=== PATIENT | male | born 1995 | race Caucasian/White ===

== ENCOUNTER 2017-01-12 08:25 | Emergency (ER) | payer OTHER ==
[~2017-01-12] VITALS: Ht 157.5 cm; Wt 90.0 kg
[2017-01-12 08:30] VITALS: BP 141/90
[2017-01-12] MEDS ORDERED: IBUP-1022 PO (08:34)
[2017-01-12] MEDS ORDERED: NORCOTAB PO (09:10)
[2017-01-12] MEDS ORDERED: AUGM875T28 PO (09:10)
[2017-01-12] MEDS ORDERED: NORCO, ANEXSIA 5/325MG TABLET (HYDROcodone/ACETAMINOPHEN) PO ONE (09:15)
[2017-01-12] MEDS ORDERED: AUGMENTIN 875 MG TAB PO ONE (09:15)
== END 2017-01-12 09:15 | disposition home or self-care (01) ==
LOC: M ED 08:25
DX: K02.9 Dental caries, unspecified (principal); K04.7 Periapical abscess without sinus

== ENCOUNTER 2017-03-14 22:09 | Emergency (ER) | payer OTHER ==
[~2017-03-14] VITALS: Ht 157.5 cm; Wt 81.8 kg
[~2017-03-14 22:09] MED LIST: AUGM875T28 PO; IBUP-1022 PO; NORCOTAB PO
[2017-03-14 22:13] VITALS: BP 146/95
[2017-03-14] MEDS ORDERED: AMOX500C PO (23:32)
[2017-03-14] MEDS ORDERED: IBUP80TA PO (23:32)
[2017-03-14] MEDS ORDERED: NORCO 5/325MG TABLET (BULK FOR ED) PO ONE (23:45)
[2017-03-14] MEDS ORDERED: AMOXICILLIN 500 MG CAP PO ONE (23:45)
[2017-03-15] MEDS ORDERED: BENA25CA4 PO (13:53)
[2017-03-15] MEDS ORDERED: HYDR-3713 PO (13:53)
[2017-03-15] MEDS ORDERED: CLIN150C14 PO (15:18)
== END 2017-03-14 23:52 | disposition home or self-care (01) ==
LOC: M ED 22:09
DX: K02.9 Dental caries, unspecified (principal); K08.89 Other specified disorders of teeth and supporting structures; J45.909 Unspecified asthma, uncomplicated

== ENCOUNTER 2017-03-15 13:45 | Emergency (ER) | payer OTHER ==
[~2017-03-15] VITALS: Ht 157.5 cm; Wt 81.8 kg
[~2017-03-15 13:45] MED LIST changes: +AMOX500C PO; +IBUP80TA PO
[2017-03-15 13:46] VITALS: BP 142/84
[2017-03-15] MEDS ORDERED: HYDR-3713 PO (13:53)
[2017-03-15] MEDS ORDERED: BENA25CA4 PO (13:53)
[2017-03-15] MEDS ORDERED: CLIN150C14 PO (15:18)
== END 2017-03-15 15:25 | disposition home or self-care (01) ==
LOC: M ED 13:45
DX: K02.9 Dental caries, unspecified (principal); K08.89 Other specified disorders of teeth and supporting structures; J45.909 Unspecified asthma, uncomplicated; Z79.2 Long term (current) use of antibiotics; Z79.899 Other long term (current) drug therapy

== ENCOUNTER 2018-12-08 22:53 | Emergency (ER) | payer OTHER, SELFPAY ==
[~2018-12-08] VITALS: Ht 160 cm; Wt 81.8 kg
[~2018-12-08 22:53] MED LIST changes: +BENA25CA4 PO; +CLIN150C14 PO; +HYDR-3713 PO; +HYDR-3715 PO; -NORCOTAB PO
[2018-12-08] MEDS ORDERED: NS 1,000 ML IV ONE (23:30)
[2018-12-08] MEDS: IPRATROPIUM 0.5MG/ALBUTEROL 2.5MG INH SOL UD 3ML (DUONEB)(J7620) NEB PRN (23:57)
[2018-12-09 00:13] LABS: BASO # 0.1 10^3/uL (0.0-0.2); BASO % 0.6 % (0.0-1.0); EOS # 0.4 10^3/uL (0.0-0.50); EOS % 4.1 % (0.0-3.0); HEMATOCRIT 43.5 % (42.0-52.0); HEMOGLOBIN 14.7 g/dl (13.5-17.5); LYMPH # 1.3 10^3/uL (1.5-6.5); MEAN CORPUSCULAR HEMOGLOBIN 29.2 pg (27.0-33.0); MEAN CORPUSCULAR HGB CONC 33.8 g/dl (32.0-36.5); MEAN CORPUSCULAR VOLUME 86.3 fl (80.0-96.0); MONO # 0.9 10^3/uL (0.0-0.8); MONO % 9.8 % (0.0-5.0); NEUTROPHILS # 6.8 10^3/uL (1.8-7.7); NEUTROPHILS % 70.8 % (36.0-66.0); PLATELET COUNT, AUTOMATED 475 10^3/uL (150-450); RED BLOOD COUNT 5.04 10^6/uL (4.30-6.10); WHITE BLOOD COUNT 9.6 10^3/uL (4.0-10.0)
[2018-12-09 00:19] LABS: BLOOD UREA NITROGEN 8 MG/DL (7-18); CALCIUM LEVEL 9.1 MG/DL (8.5-10.1); CARBON DIOXIDE LEVEL 28 MEQ/L (21-32); CHLORIDE LEVEL 101 MEQ/L (98-107); CREATININE FOR GFR 0.81 MG/DL (0.70-1.30); GLOMERULAR FILTRATION RATE > 60.0 (>60); GLUCOSE, FASTING 99 MG/DL (70-100); SODIUM LEVEL 135 MEQ/L (136-145)
[2018-12-09] MEDS: IPRATROPIUM 0.5MG/ALBUTEROL 2.5MG INH SOL UD 3ML (DUONEB)(J7620) NEB PRN ×2 (00:33→00:52)
[2018-12-09] MEDS ORDERED: methylPREDNISolone INJ 125 MG/2 ML VIAL (J2930) IV ONE (01:15)
[2018-12-09] MEDS ORDERED: AZITHROMYCIN 250 MG TAB PO ONE (01:15)
[2018-12-09] MEDS ORDERED: PROAAER10 INH (01:34)
[2018-12-09] MEDS ORDERED: PRED20TA PO (01:34)
[2018-12-09] MEDS ORDERED: AZIT-12 PO (01:34)
[2018-12-09] MEDS ORDERED: ALBUTEROL 90 MCG/ACT 8GM HFA INHALER INH ONE (01:45)
[2018-12-09 01:53] VITALS: BP 147/68
--- NOTE | 2018-12-09 09:59 | REP ---
REASON: Cough and dyspnea. COMPARISON: 04/23/2014. There is a patchy opacity in the left upper lobe representing a change from the prior exam. The heart is not enlarged and the pleural angles are sharp. The osseous structures are stable and intact. IMPRESSION: Left upper lobe pneumonia. Electronically Signed by Fadi Barrett DO 12/09/2018 09:09 A
== END 2018-12-09 01:56 | disposition home or self-care (01) ==
LOC: M ED 22:53
DX: J45.901 Unspecified asthma with (acute) exacerbation (principal); J84.9 Interstitial pulmonary disease, unspecified
CPT/HCPCS: 71046; 80048; 85025; 94760; 96361; 96374; 99284; J2930

== ENCOUNTER 2019-02-27 17:32 | Inpatient (IN) | payer SELFPAY ==
[~2019-02-27] VITALS: Ht 177.8 cm; Wt 80.3 kg
[~2019-02-27 17:32] MED LIST changes: +AZIT-12 PO; +PRED20TA PO; +PROAAER10 INH
[2019-02-27] MEDS ORDERED: PROPOFOL 1,000 MG in IV 1 EA IV SCH (17:51)
[2019-02-27] MEDS ORDERED: SUCCINYLCHOLINE INJ 200 MG/10 ML VIAL (J0330) IV ONE (18:00)
[2019-02-27] MEDS ORDERED: ETOMIDATE INJ 20MG/10ML VIAL IV ONE (18:00)
[2019-02-27] MEDS ORDERED: NS 1,000 ML IV ONE ×2 (18:00→19:45)
--- NOTE | 2019-02-27 18:25 | REP ---
Clinical: Altered mental status. Comparison: 12/08/2018. Findings: Endotracheal tube 3 cm above the marky. Nasogastric tube courses below left hemidiaphragm. Mediastinum and cardiac silhouette are within normal limits. Subtle left lower lobe/retrocardiac atelectasis cannot be excluded. No effusion. No pneumothorax. Skeletal structures intact. Impression: 1. NGT and ET tubes in satisfactory position. 2. Cannot exclude subtle left lower lobe/retrocardiac infiltrate. Electronically Signed by Colton Jacobs MD 02/27/2019 06:17 P
[2019-02-27 18:47] LABS: BASO # 0.1 10^3/uL (0.0-0.2); BASO % 0.9 % (0.0-1.0); EOS # 0.5 10^3/uL (0.0-0.5); EOS % 5.5 % (0.0-3.0); HEMATOCRIT 41.5 % (42.0-52.0); HEMOGLOBIN 14.1 g/dl (13.5-17.5); LYMPH # 2.8 10^3/uL (1.5-5.0); LYMPH % 33.3 % (24.0-44.0); MEAN CORPUSCULAR HEMOGLOBIN 29.6 pg (27.0-33.0); MEAN CORPUSCULAR VOLUME 87.2 fl (80.0-96.0); MONO # 0.7 10^3/uL (0.0-0.8); MONO % 7.6 % (0.0-5.0); NEUTROPHILS # 4.5 10^3/uL (1.5-8.5); NEUTROPHILS % 52.3 % (36.0-66.0); PLATELET COUNT, AUTOMATED 309 10^3/uL (150-450); RED BLOOD COUNT 4.76 10^6/uL (4.30-6.10); WHITE BLOOD COUNT 8.5 10^3/uL (4.0-10.0)
[2019-02-27 19:08] LABS: AMPHETAMINES LEVEL URINE NEGATIVE (NEGATIVE); BARBITURATES URINE NEGATIVE (NEGATIVE); BENZODIAZEPINES URINE NEGATIVE (NEGATIVE); CANNABINOIDS URINE NEGATIVE (NEGATIVE); COCAINE METABOLITE URINE NEGATIVE (NEGATIVE); METHADONE URINE NEGATIVE (NEGATIVE); OPIATES URINE NEGATIVE (NEGATIVE); PHENCYCLIDINE URINE NEGATIVE (NEGATIVE)
[2019-02-27 19:24] LABS: OSMOLALITY SERUM 353 MOSM/KG (275-295)
[2019-02-27 19:28] LABS: ACETAMINOPHEN LEVEL < 2.0 UG/ML (10.0-30.0); ALBUMIN 3.5 GM/DL (3.2-5.2); ALT/SGPT 70 U/L (12-78); BILIRUBIN,DIRECT 0.1 MG/DL (0.0-0.2); BILIRUBIN,TOTAL 0.4 MG/DL (0.2-1.0); BLOOD UREA NITROGEN 3 MG/DL (7-18); CALCIUM LEVEL 7.7 MG/DL (8.5-10.1); CARBON DIOXIDE LEVEL 24 MEQ/L (21-32); CHLORIDE LEVEL 108 MEQ/L (98-107); CK-MB VALUE MASS 1.2 NG/ML (<3.6); CPK CREATINE PHOSPHOKINASE 228 U/L (39-308); CREATININE FOR GFR 0.73 MG/DL (0.70-1.30); ETHYL ALCOHOL (ETHANOL) 0.262 % (0.000-0.010); GLOMERULAR FILTRATION RATE > 60.0 (>60); GLUCOSE, FASTING 124 MG/DL (70-100); MB/CK RELATIVE INDEX 0.53 (< OR =4); POTASSIUM SERUM 3.5 MEQ/L (3.5-5.1); SALICYLATE LEVEL < 1.7 MG/DL (5.0-30.0); SODIUM LEVEL 142 MEQ/L (136-145); TOTAL PROTEIN 6.7 GM/DL (6.4-8.2); TROPONIN I < 0.02 NG/ML (< 0.10)
--- NOTE | 2019-02-27 19:35 | REPVR ---
PROCEDURE INFORMATION: Exam: CT Head Without Contrast Exam date and time: 02/27/2019 6:21 PM Clinical history: 23 years old, male; Injury or trauma; Initial encounter; Blunt trauma (contusions or hematomas); Injury details: ETOH fall TECHNIQUE: Imaging protocol: Computed tomography of the head without contrast. Radiation optimization: All CT scans at this facility use at least one of these dose optimization techniques: automated exposure control; mA and/or kV adjustment per patient size (includes targeted exams where dose is matched to clinical indication); or iterative reconstruction. COMPARISON: No relevant prior studies available. FINDINGS: Brain: No CT evidence of acute intracranial hemorrhage or acute territorial infarction. No significant mass effect or midline shift. Basal cisterns patent. Ventricles: Normal in size and configuration. Bones/joints: Comminuted, minimally displaced bilateral nasal bone fractures. Sinuses: Diminutive, completely opacified left maxillary sinus. Mild polypoid ethmoid, right frontal and right maxillary sinus mucosal thickening. Mastoid air cells: Grossly unremarkable. Soft tissues: Grossly unremarkable. IMPRESSION: 1. No CT evidence of acute intracranial pathology. 2. Comminuted, minimally displaced bilateral nasal bone fractures. 3. Additional findings, as above. Electronically signed by: Osmar Mendoza On 02/27/2019 19:35:21 PM
--- NOTE | 2019-02-27 19:37 | REPVR ---
PROCEDURE INFORMATION: Exam: CT Cervical Spine Without Contrast Exam date and time: 02/27/2019 6:21 PM Clinical history: 23 years old, male; Injury or trauma; Initial encounter; Blunt trauma; Injury details: ETOH fall TECHNIQUE: Imaging protocol: Computed tomography images of the cervical spine without contrast. Axial, coronal and sagittal reformatted images were created and reviewed. Radiation optimization: All CT scans at this facility use at least one of these dose optimization techniques: automated exposure control; mA and/or kV adjustment per patient size (includes targeted exams where dose is matched to clinical indication); or iterative reconstruction. COMPARISON: No relevant prior studies available. FINDINGS: Vertebrae: Straightening of the normal cervical lordosis. Alignment anatomic. Mild dextroscoliosis. No CT evidence of acute fracture, dislocation or subluxation. Vertebral body heights maintained. Discs/Spinal canal/Neural foramina: Intervertebral disc spaces preserved. No significant spinal canal or neural foraminal stenosis. Soft tissues: Grossly unremarkable. Lungs: Grossly unremarkable. IMPRESSION: 1. No CT evidence of acute cervical spine traumatic injury. 2. Additional findings, as above. Electronically signed by: Osmar Mendoza On 02/27/2019 19:37:11 PM
[2019-02-27 19:41] LABS: ABG pH (ARTERIAL) 7.352 UNITS (7.350-7.450)
[2019-02-27 19:42] LABS: ABG BASE EXCESS -1.5 (-2.0-2.0); ABG HCO3 24.3 MEQ/L (22.0-26.0); ABG O2 SATURATION 99.2 % (95.0-99.0); ABG PARTIAL PRESSURE CO2 44.8 mmHg (35.0-45.0); ABG PARTIAL PRESSURE O2 181.2 mmHg (75.0-100.0); ABG STANDARD HCO3 23.3 MEQ/L (22.0-26.0); ABG TOTAL CO2 25.7 MEQ/L (22.0-29.0)
--- NOTE | 2019-02-27 19:42 | REPVR ---
PROCEDURE INFORMATION: Exam: CT Maxillofacial Without Contrast Exam date and time: 02/27/2019 6:21 PM Clinical history: 23 years old, male; Injury or trauma; Initial encounter; Blunt trauma (contusions or hematomas); Head/scalp; Loss of consciousness; Injury details: ETOH fall TECHNIQUE: Imaging protocol: Computed tomography images of the face without contrast. Axial, coronal and sagittal reformatted images were created and reviewed. Radiation optimization: All CT scans at this facility use at least one of these dose optimization techniques: automated exposure control; mA and/or kV adjustment per patient size (includes targeted exams where dose is matched to clinical indication); or iterative reconstruction. COMPARISON: No relevant prior studies available. FINDINGS: Orbits: No acute intraorbital abnormality. Globes intact. Sinuses: Diminutive, completely opacified left maxillary sinus. Mild polypoid ethmoid, right frontal and right maxillary sinus mucosal thickening. Bones/joints: Comminuted, minimally displaced bilateral nasal bone fractures. Soft tissues: Unremarkable. IMPRESSION: 1. Comminuted, minimally displaced bilateral nasal bone fractures. 2. Additional findings, as above. Electronically signed by: Osmar Mendoza On 02/27/2019 19:42:09 PM
[2019-02-27] MEDS ORDERED: PROAAER10 INH (19:54)
[2019-02-27] MEDS: PROPOFOL 1,000 MG in IV 1 EA IV SCH (20:55)
[2019-02-27] MEDS ORDERED: ALBUTEROL SULFATE 2.5 MG/0.5 ML INH NEB SOLN NEB PRN (21:00)
[2019-02-27] MEDS ORDERED: CHLORHEXIDINE GLUCONATE 0.12 % 15ML UDC (PERIDEX ORAL RINSE) MT SCH (21:00)
[2019-02-27] MEDS ORDERED: MULTIVITAMIN -ADULT INJECTION 10 ML, THIAMINE INJection 100 MG, FOLIC ACID 1 MG in NS 1... IV ONE (21:15)
[2019-02-27 22:00] VITALS: BP 106/56
[2019-02-27 22:25] LABS: ABG BASE EXCESS 0.6 (-2.0-2.0); ABG HCO3 26.2 MEQ/L (22.0-26.0); ABG O2 SATURATION 99.4 % (95.0-99.0); ABG PARTIAL PRESSURE CO2 45.9 mmHg (35.0-45.0); ABG PARTIAL PRESSURE O2 221.9 mmHg (75.0-100.0); ABG STANDARD HCO3 25.1 MEQ/L (22.0-26.0); ABG TOTAL CO2 27.6 MEQ/L (22.0-29.0); ABG pH (ARTERIAL) 7.375 UNITS (7.350-7.450)
--- NOTE | 2019-02-27 22:50 | ECGEPIP ---
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
--- NOTE | 2019-02-27 22:54 | HPE ---
DATE OF ADMISSION: 02/27/2019 CHIEF COMPLAINT: Alcohol intoxication and fall. HISTORY OF PRESENT ILLNESS: Mr. Shell liu a 23-year-old male with a past medical history of asthma who presented to the emergency department (ED) in the setting of a fall and alcohol intoxication. History is limited as the patient is unable to provide a history and there are no family members currently at the bedside. History is obtained from the chart and from other collateral information, from the ED physician and nurses. Patient apparently was at a friend's house where he was drinking whiskey (Ihsan Beam) since early in the morning and playing video games. He had stood up, vomited and then passed out, hitting his face on a fan in the room. Patient was unconscious when Emergency Medical Services (EMS) arrived and was minimally responsive in the ED. Patient was intubated therefore due to his altered mental status and some concern for being able to protect his airway. Patient was noted to have mild ecchymosis on his forehead and on the bridge of his nose. He had CT imaging done of his head and maxillofacial and his neck. Patient otherwise was reportedly in his usual state of health prior to this. His only other medical history is asthma. Patient does not take any medications reportedly besides albuterol inhaler as needed. PAST MEDICAL HISTORY: Asthma. PAST SURGICAL HISTORY: Unknown. HOME MEDICATIONS: - albuterol as needed ALLERGIES: No known drug allergies. SOCIAL HISTORY: Patient's mother reports that he does drink alcohol, although not daily. He does frequently hang out at his friend's house, however, so she is unsure if he is drinking while at his friend's house. She has stated that he can usually "handle his alcohol" fairly well. Unknown other substance abuse. FAMILY HISTORY: Noncontributory. PHYSICAL EXAMINATION: VITAL SIGNS: Temperature 97.2, pulse 72, respirations 20, blood pressure 108/73, oxygen saturation 100% on the ventilator at 40% FiO2. GENERAL: Patient is intubated and sedated, is responsive to painful stimuli, but is not following commands. HEENT: Normocephalic. There is trauma with ecchymosis on his forehead as well as on the bridge of his nose, with some dried blood noted. Pupils are small and sluggish, but reactive to light bilaterally. Mucous membranes are moist. He did have some tongue biting noted as well. Neck is supple. Trachea is midline. There is no palpable cervical adenopathy. CARDIOVASCULAR: Regular rate and rhythm. Normal S1, S2. Unable to appreciate any murmurs. PULMONARY: Coarse ventilated breath sounds bilaterally with no wheezing, rales or rhonchi. ABDOMEN: Soft, nontender, nondistended. Positive bowel sounds. EXTREMITIES: There is no lower extremity edema noted bilaterally and no significant trauma. LABORATORY DATA: WBC 8.5, hemoglobin 14.1, platelets 309. Chemistry: Sodium is 142, potassium 3.5, chloride 108, bicarbonate 24, BUN 10, creatinine 0.73, anion gap is 10, glucose is 124, lactic acid is 3.3, calcium 7.7, AST, ALT within normal limits. Ammonia level 87. Troponin negative. CPK 228. Albumin is 3.5. TSH 1.140. Arterial blood gas (ABG): pH 7.352, pCO2 of 44.8, pO2 of 181.2. Urine toxicology was negative. Salicylate and acetaminophen level was low. Alcohol level was 0.262. Urinalysis (UA) was negative for ketones, nitrites, leukocyte esterase. IMAGING: Chest x-ray on admission showed endotracheal (ET) tube in position and an orogastric (OG) tube coursing below the diaphragm. There are no focal opacities or infiltrates, but question possible atelectasis in the left lower lobe. CT maxillofacial shows comminuted minimally displaced bilateral nasal bone fractures. There is completely opacified diminutive left maxillary sinus. There is some right frontal and right maxillary sinus mucosal thickening and mild polypoid ethmoid sinus. Head CT: No CT evidence acute intracranial pathology. No evidence of bleed. Cervical spine CT: No CT evidence of acute cervical spine traumatic injury. ASSESSMENT AND PLAN: Patient is a 23-year-old male with a history of asthma who presented to the ED in the setting of alcohol intoxication and a fall with trauma to his face with a nasal bone fracture. Patient was minimally responsive on arrival to the ED with evidence of vomitus and there was concern of his ability to protect his airway and so he was intubated and placed on mechanical ventilation. PROBLEM LIST: 1. Alcohol intoxication. 2. Metabolic encephalopathy with depressed respiratory status. 3. Asthma. 4. Minimally displaced bilateral nasal bone fractures. - Would continue the patient on propofol for sedation and will give as needed Versed and fentanyl for analgesia. - Will perform a sedation vacation and a weaning trial in the morning to assess for possible weaning from the ventilator. - We will continue the patient on ventilator on pressure-regulated volume control (PRVC) mode with settings of 400/14/40 and 5. - Will start albuterol as needed. Does not appear to have any wheezing on exam currently, although he does have a history of asthma. - Continue with daily chest x-rays and ABGs while intubated. - Continue with vent bundle with head of elevation and chlorhexidine mouthwash. - Continue OG tube to low wall intermittent suction. - Patient had mild lactic acidosis on presentation. He has been afebrile and he has no leukocytosis and no evidence of infectious etiology. Sepsis is unlikely. He is status post 2 liters normal saline bolus in the ED. Will continue with intravenous (IV) fluid hydration with a banana bag given his history of alcohol use and will follow up a repeat lactic acid. - Continue to monitor his electrolytes and renal function. He has a Swenson in currently for monitoring his ins and outs. - Deep venous thrombosis prophylaxis. Lovenox. FULL CODE. Total critical care time spent, not including any procedures, approximately 1 hour. MTDD
[2019-02-28] VITALS (21 sets, daily range): BP systolic 92–118; BP diastolic 48–68; O2SAT 97
[2019-02-28] MEDS: PROPOFOL 1,000 MG in IV 1 EA IV SCH ×3 (00:41→06:24)
[2019-02-28] MEDS: MIDAZOLAM INJ 2 MG/2 ML VIAL (J2250) IV PRN ×4 (02:26→07:18)
[2019-02-28 04:50] LABS: HEMATOCRIT 39.7 % (42.0-52.0); HEMOGLOBIN 13.4 g/dl (13.5-17.5); MEAN CORPUSCULAR HEMOGLOBIN 29.5 pg (27.0-33.0); MEAN CORPUSCULAR HGB CONC 33.8 g/dl (32.0-36.5); MEAN CORPUSCULAR VOLUME 87.3 fl (80.0-96.0); PLATELET COUNT, AUTOMATED 338 10^3/uL (150-450); RED BLOOD COUNT 4.55 10^6/uL (4.30-6.10); WHITE BLOOD COUNT 10.7 10^3/uL (4.0-10.0)
[2019-02-28 05:26] LABS: ALBUMIN 3.2 GM/DL (3.2-5.2); ALT/SGPT 60 U/L (12-78); BILIRUBIN,TOTAL 0.3 MG/DL (0.2-1.0); BLOOD UREA NITROGEN 6 MG/DL (7-18); CALCIUM LEVEL 7.6 MG/DL (8.5-10.1); CARBON DIOXIDE LEVEL 28 MEQ/L (21-32); CHLORIDE LEVEL 113 MEQ/L (98-107); GLOMERULAR FILTRATION RATE > 60.0 (>60); GLUCOSE, FASTING 98 MG/DL (70-100); MAGNESIUM LEVEL 1.7 MG/DL (1.8-2.4); PHOSPHORUS LEVEL 2.3 MG/DL (2.5-4.9); POTASSIUM SERUM 3.6 MEQ/L (3.5-5.1); SODIUM LEVEL 146 MEQ/L (136-145); TOTAL PROTEIN 6.4 GM/DL (6.4-8.2)
[2019-02-28] MEDS: fentaNYL 100 MCG/2 ML INJECTION (J3010) IV PRN ×2 (05:51→07:18)
[2019-02-28 05:55] LABS: ABG BASE EXCESS 0.5 (-2.0-2.0); ABG HCO3 24.4 MEQ/L (22.0-26.0); ABG O2 SATURATION 99.5 % (95.0-99.0); ABG PARTIAL PRESSURE O2 191.7 mmHg (75.0-100.0); ABG TOTAL CO2 25.5 MEQ/L (22.0-29.0); ABG pH (ARTERIAL) 7.437 UNITS (7.350-7.450)
[2019-02-28] MEDS ORDERED: MAG SULF 1GM/100ML (MAG RUN) 1 GM in IV 1 EA IV ONE (08:00)
[2019-02-28] MEDS ORDERED: ACETAMINOPHEN TAB 650MG DOSE (2X325MG) PO PRN (08:15)
--- NOTE | 2019-02-28 08:37 | REP ---
Clinical: Intubation. Comparison: 02/27/2019. Findings: The endotracheal tube is approximately 1 cm from the marky. The nasogastric tube just passes below the left hemidiaphragm but the side port is above the level of diaphragm and warrants advancement. The mediastinum and cardiac silhouette are stable within normal limits. Lung garcía are relatively clear although subtle left basilar atelectasis cannot be excluded. No effusion. No pneumothorax. Skeletal structures are intact. Impression: 1. Endotracheal tube warrants reevaluation. 2. Nasogastric tube requires advancement. 3. No new mediastinal or pleuroparenchymal process. Electronically Signed by Colton Jacobs MD 02/28/2019 08:28 A
[2019-02-28] MEDS ORDERED: ENOXAPARIN 40 MG/0.4 ML SYRINGE (J1650) SC SCH (09:00)
[2019-02-28] MEDS ORDERED: PANTOPRAZOLE 40MG INJ (PROTONIX) (C9113) IV SCH (09:00)
[2019-02-28] MEDS ORDERED: PANTOPRAZOLE 40MG TAB (PROTONIX) PO SCH (09:00)
--- NOTE | 2019-02-28 10:28 | DS.PDOC ---
Discharge Summary General Date of Admission Feb 27, 2019 at 20:55 Date of Discharge 02/28/19 Discharge Summary PROCEDURES PERFORMED DURING STAY: Endotracheal intubation ADMITTING DIAGNOSES: 1. Alcohol intoxication 2. Metabolic encephalopathy 3. Respiratory depression with intubation and mechanical ventilation 4. Bilateral nasal bone fractures 5. Asthma DISCHARGE DIAGNOSES: 1. Alcohol intoxication COMPLICATIONS/CHIEF COMPLAINT: Alcohol Intoxication. HISTORY OF PRESENT ILLNESS: Mr. Goff is a 23-year-old male with a past medical history of asthma who presented to the emergency department (ED) in the setting of a fall and alcohol intoxication. History is limited as the patient is unable to provide a history and there are no family members currently at the bedside. History is obtained from the chart and from other collateral information, from the ED physician and nurses. Patient apparently was at a friend's house where he was drinking whiskey (Ihsan Beam) since early in the morning and playing video games. He had stood up, vomited and then passed out, hitting his face on a fan in the room. Patient was unconscious when Emergency Medical Services (EMS) arrived and was minimally responsive in the ED. Patient was intubated therefore due to his altered mental status and some concern for being able to protect his airway. Patient was noted to have mild ecchymosis on his forehead and on the bridge of his nose. He had CT imaging done of his head and maxillofacial and his neck. Patient otherwise was reportedly in his usual state of health prior to this. His only other medical history is asthma. Patient does not take any medications reportedly besides albuterol inhaler as needed. HOSPITAL COURSE: Patient's head CT did not show any evidence of bleeding or acute intracranial pathology. His CT maxillofacial showed comminuted minimally displaced bilateral nasal bone fractures. His neck CT did not show any fracture. He was admitted to ICU on mechanical ventilation. Patient was kept sedated overnight. In the morning patient had sedation vacation and weaning trial which he tolerated well and was successfully extubated. He has been weaned off oxygen supplementation to room air. Patient's barlow was removed, he passed trial of void. Patient was also able to ambulate and tolerate oral diet. He denies any complaints. DISCHARGE MEDICATIONS: Please see below. ALLERGIES: Please see below. PHYSICAL EXAMINATION ON DISCHARGE: VITAL SIGNS: Please see below. General: Patient is AAO x3. Not in respiratory distress HEENT: NC. Abrasion on forehead and bridge of nose. PERRL Moist mucous membranes. No scleral icterus. Neck supple, no palpable adenopathy CVS: RRR, normal S1 and S2, no murmurs appreciated Pulm: coarse breath sounds bilaterally, no wheezing, rales or rhonchi. Abd: soft, NT/ND. Positive bowel sounds Ext: no LE edema bilaterally. Peripheral pulses present and equal. LABORATORY DATA: Please see below. IMAGING: Chest x-ray on admission showed endotracheal (ET) tube in position and an orogastric (OG) tube coursing below the diaphragm. There are no focal opacities or infiltrates, but question possible atelectasis in the left lower lobe. CT maxillofacial shows comminuted minimally displaced bilateral nasal bone fractures. There is completely opacified diminutive left maxillary sinus. There is some right frontal and right maxillary sinus mucosal thickening and mild polypoid ethmoid sinus. Head CT: No CT evidence acute intracranial pathology. No evidence of bleed. Cervical spine CT: No CT evidence of acute cervical spine traumatic injury PROGNOSIS: Good ACTIVITY: As tolerated. DIET: Regular diet DISCHARGE PLAN: Follow-up with ENT as an outpatient if needed DISPOSITION: Home DISCHARGE INSTRUCTIONS: 1. Follow-up with ENT as an outpatient for your nasal bone fractures if needed 2. Avoid alcohol and other sedatives. If change in mental status or neurologic complaints present back to ED or urgent care 3. Can take OTC tylenol or motrin as needed for pain following the instructions on the medication ITEMS TO FOLLOWUP ON ON OUTPATIENT: 1. Nasal bone fracture DISCHARGE CONDITION: Stable. TIME SPENT ON DISCHARGE: Greater than 30 minutes. Vital Signs/I&Os Vital Signs Date Time Temp Pulse Resp B/P (MAP) Pulse Ox O2 Delivery O2 Flow Rate FiO2 02/28/19 08:00 40 02/28/19 07:45 97 Aerosol Mask 02/28/19 07:25 16 02/28/19 07:18 98 02/28/19 06:06 104/54 (71) 02/28/19 04:00 98.0 I&O- Last 24 Hours up to 6 AM 02/28/19 06:00 Intake Total 1015.8 ml Output Total 1600 ml Balance -584.2 ml Laboratory Data Labs 24H Laboratory Tests 2 02/27/19 18:27: Immature Granulocyte % (Auto) 0.4, Neutrophils (%) (Auto) 52.3, Lymphocytes (%) (Auto) 33.3, Monocytes (%) (Auto) 7.6H, Eosinophils (%) (Auto) 5.5H, Basophils (%) (Auto) 0.9, Neutrophils # (Auto) 4.5, Lymphocytes # (Auto) 2.8, Monocytes # (Auto) 0.7, Eosinophils # (Auto) 0.5, Basophils # (Auto) 0.1, Nucleated Red Blood Cells % (auto) 0.0, Urine Color YELLOW, Urine Appearance CLEAR, Urine pH 7.0, Urine Specific [place] 1.005, Urine Protein NEGATIVE, Urine Glucose (UA) NEGATIVE, Urine Ketones NEGATIVE, Urine Blood NEGATIVE, Urine Nitrite NEGATIVE, Urine Bilirubin NEGATIVE, Urine Urobilinogen 0.2, Urine Leukocyte Esterase NEGATIVE, Urine WBC (Auto) 0, Urine RBC (Auto) 1, Urine Hyaline Casts (Auto) 0, Urine Bacteria (Auto) NEGATIVE, Urine Squamous Epithelial Cells 0, Urine Sperm (Auto) , Anion Gap 10, Glomerular Filtration Rate > 60.0, Osmolality 353H, Lactic Acid Level 3.3*H, Calcium Level 7.7L, Total Bilirubin 0.4, Direct Bilirubin 0.1, Aspartate Amino Transf (AST/SGOT) 33, Alanine Aminotransferase (ALT/SGPT) 70, Alkaline Phosphatase 49, Ammonia 87H, Total Creatine Kinase 228, Creatine Kinase MB 1.2, Creatine Kinase MB Relative Index 0.53, Troponin I < 0.02, Total Protein 6.7, Albumin 3.5, Albumin/Globulin Ratio 1.09, Thyroid Stimulating Hormone (TSH) 1.140, Salicylates Level < 1.7L, Urine Opiates Screen NEGATIVE, Urine Methadone Screen NEGATIVE, Acetaminophen Level < 2.0L, Urine Barbiturates Screen NEGATIVE, Urine Phencyclidine Screen NEGATIVE, Urine Amphetamines Screen NEGATIVE, Urine Benzodiazepines Screen NEGATIVE, Urine Cocaine Metabolite Screen NEGATIVE, Urine Cannabinoids Screen NEGATIVE, Ethyl Alcohol Level 0.262H 02/27/19 19:31: Blood Gas Bicarbonate Standard 23.3, Arterial Blood pH 7.352, Arterial Blood Partial Pressure CO2 44.8, Arterial Blood Partial Pressure O2 181.2H, Arterial Blood Total CO2 25.7, Arterial Blood HCO3 24.3, Arterial Blood Base Excess -1.5, Arterial Blood Oxygen Saturation 99.2H 02/27/19 22:10: Blood Gas Bicarbonate Standard 25.1, Arterial Blood pH 7.375, Arterial Blood Partial Pressure CO2 45.9H, Arterial Blood Partial Pressure O2 221.9H, Arterial Blood Total CO2 27.6, Arterial Blood HCO3 26.2H, Arterial Blood Base Excess 0.6, Arterial Blood Oxygen Saturation 99.4H 02/27/19 22:49: Lactic Acid Followup at 4 Hours 2.3*H 02/28/19 04:33: Nucleated Red Blood Cells % (auto) 0.0, Anion Gap 5L, Glomerular Filtration Rate > 60.0, Calcium Level 7.6L, Phosphorus Level 2.3L, Magnesium Level 1.7L, Total Bilirubin 0.3, Aspartate Amino Transf (AST/SGOT) 35, Alanine Aminotransferase (ALT/SGPT) 60, Alkaline Phosphatase 51, Total Protein 6.4, Albumin 3.2, Albumin/Globulin Ratio 1.00 02/28/19 05:45: Blood Gas Bicarbonate Standard 25.0, Arterial Blood pH 7.437, Arterial Blood Partial Pressure CO2 37.0, Arterial Blood Partial Pressure O2 191.7H, Arterial Blood Total CO2 25.5, Arterial Blood HCO3 24.4, Arterial Blood Base Excess 0.5, Arterial Blood Oxygen Saturation 99.5H CBC/BMP Laboratory Tests 02/27/19 18:27 02/28/19 04:33 Discharge Medications Scheduled PRN Albuterol Sulfate (Proair Hfa) 8.5 Gm Hfa.aer.ad, 2 PUFF INH Q4H PRN for SOB/WHEEZING, (Reported) Diphenhydramine HCl (Benadryl) 25 Mg Cap, 25 MG PO Q6H PRN for ITCHING/SWELLING, (Reported) Allergies Coded Allergies: No Known Allergies (Unverified , 12/08/18) THOR BENITES MD Feb 28, 2019 10:28
== END 2019-02-28 12:57 | disposition home or self-care (01) | DRG 775 ==
LOC: EDBD 17:32 → M ED 17:32 → M ED INP 20:55 → M ICU 21:56
PROVIDERS: ADMIT Internal Medicine Pulmonary Disease; ATTEND Internal Medicine Pulmonary Disease
PROC: 5A1935Z Respiratory Ventilation, Less than 24 Consecutive Hours (ICD-10-PCS; principal; 2019-02-27)
PROC: 0BH17EZ Insertion of Endotracheal Airway into Trachea, Via Natural or Artificial Opening (ICD-10-PCS; 2019-02-27)
DX: F10.129 Alcohol abuse with intoxication, unspecified (principal); G93.41 Metabolic encephalopathy; E87.2 Acidosis; G93.89 Other specified disorders of brain; J45.909 Unspecified asthma, uncomplicated; S02.2XXA Fracture of nasal bones, initial encounter for closed fracture; W18.09XA Striking against other object with subsequent fall, initial encounter; Y92.019 Unspecified place in single-family (private) house as the place of occurrence of the external cause; Y93.C2 Activity, hand held interactive electronic device

== ENCOUNTER → 2025-03-10 | Outpatient (REF) | payer OTHER ==
[~2025-03-10] MED LIST changes: -CLIN150C14 PO; +CLIN150C17 PO; -IBUP-1022 PO; +IBUP600T42 PO
== END ==
LOC: M LAB REF 17:42
DX: B34.9 Viral infection, unspecified (principal); J02.9 Acute pharyngitis, unspecified